=== PATIENT | male | born 1945 | race Caucasian/White ===

== ENCOUNTER 2016-09-20 14:54 | Inpatient (IN) | payer OTHER, BC ==
[~2016-09-20] VITALS: Ht 182.9 cm; Wt 60.4 kg
--- NOTE | ~2016-09-20 | HC ---
[facility] [place] [address] CONSULTATION Name: CLAUDIA ANGEL Room #: 445-P [facility] IN M.R.#: [id number] Admission: 09/20/16 Attend Phys: Peter Van MD Discharge: 09/23/16 Date of : 41 Report #: [id number] THIS REPORT FOR: //name// CC: Peter Van ATTENDING PHYSICIAN: Peter Van MD HISTORY OF PRESENT ILLNESS: This is a very pleasant 71-year-old gentleman who presents for lower extremity edema bilaterally. The patient states that this only happened for 2 or 3 days since that ____. Apparently, he had noted this profound swelling over lower extremities below the knees and to the point where now upon presentation he has erythema and cellulitic type presentation. He does not have any fever, chills or night sweats. Apparently, he was unable to take his Lasix for several days last week due to running out of his medications. He attributes that being the initial factor in his edema. He does have a history of coronary artery disease with multiple cardiac stents placed in the past. He denies any chest pain, pressure, tightness or heaviness. He has no orthopnea or PND. He is not short of breath at all and states that he has been sleeping flat in bed all this time. No syncope or near syncope is described. PAST MEDICAL HISTORY: Significant for: 1. Hypertension. 2. Coronary artery disease, status post prior myocardial infarctions and intracoronary stents. 3. COPD. 4. Sleep apnea syndrome, on CPAP. 5. History of subarachnoid hemorrhage in the past. 6. Asbestos exposure to the lungs. 7. Atrial fibrillation. 8. 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 PAST SURGICAL HISTORY: Significant for pacemaker in February of 2014, back injury in March 2013. MEDICATIONS: Oxycodone, Advair, [place]burn 3 fish oil, K-Dur, low dose aspirin, Nitrostat, Prilosec, Lasix, ProAir, Plavix, Pacerone, Lopressor and multivitamin. ALLERGIES: No known drug allergies. SOCIAL HISTORY: The patient continues to smoke, does not consume alcohol. Does not follow up with exercise regimen or dietary restriction, but has used ____ in the past. REVIEW OF SYSTEMS: Except for symptoms previously mentioned and those commensurate with comorbid state, the 10-point review of systems is negative. [address] [address] CONSULTATION Name: CLAUDIA ANGEL Room #: 445-P [facility] IN [facility]#: [id number] Admission: 09/20/16 Attend Phys: Peter Van MD Discharge: 09/23/16 Date of : 43 Report #: [id number] PHYSICAL EXAMINATION: GENERAL: Well-developed white male, resting comfortably in no acute distress. VITAL SIGNS: Noted and reviewed in the chart. HEENT: Normocephalic, atraumatic. Pupils are equal, round, reactive to light and accommodation. Extraocular muscles are intact. Sclerae and conjunctivae are anicteric. NECK: JVD is normal. Carotid upstrokes are bilaterally symmetrical. No bruits are heard. No thyromegaly. No lymphadenopathy. LUNGS: Clear to auscultation. No wheezes, rhonchi or crackles. No CVA tenderness. CARDIAC: Demonstrates a regular rhythm. Normal first and second heart sounds. No ventricular or atrial gallops, no rubs noted. No murmurs. No lifts or heaves, PMI normal. ABDOMEN: Soft, nontender, nondistended. Normal bowel sounds. EXTREMITIES: Demonstrates bilateral edema, which is at least moderate from the knees to the feet. There is demarcation of where his socks were before and above these, there is erythema noted without any broken skin, but he does have dry skin, which he states he has had for quite sometime. He has no significant hair in his lower extremities and nails are opacified and slightly thickened. NEUROLOGIC: Cranial nerves 2-12 are grossly normal and symmetrical. PSYCHIATRIC: Alert, oriented with normal affect. SKIN: Warm and dry. Electrocardiogram demonstrates a paced rhythm. LABORATORY DATA: Demonstrates a BUN and creatinine of 10 and 1.2. Estimated GFR of 59. Potassium 3.5. H and H is 13.6 and 40.9 with a platelet count of 229,000. RADIOLOGIC: Chest x-ray demonstrates chronic lung changes and no acute abnormalities. IMPRESSION: 1. Lower extremity cellulitis, will need to be on antibiotics, elevation of the legs, etc. We discussed this. Suggest wound clinic to help long-term management of his venous insufficiency, which is likely his admitting diagnosis. BNP can be elevated for numerous reasons including an elevated creatinine and infections. 2. Coronary artery disease, asymptomatic, currently on medication, continue as is. 3. Congestive heart failure: He does not have congestive heart failure. He has no fluid in his lungs, he is able to lie down flat in bed. <ELECTRONICALLY SIGNED> By: Celso Currie MD 09/24/16 1241 0014 2154 Celso Currie MD /nt
--- NOTE | ~2016-09-20 | EKG ---
[place] [address] 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 : 1945 Requested By: Bryce Hall Order Number: [id number] MD: Vitaly Whelan Measurements Intervals [place] Rate: 88 P: MN: QRS: -69 QRSD: 120 T: 111 QT: 446 QTc: 540 Interpretive Statements Afib/flut and V-paced complexes No further rhythm analysis attempted due to paced rhythm Occasional intrinsic depolarizations No previous ECG available for comparison Electronically Signed On 09-24-2016 8:07:35 CATEGORY DIRECTOR by Vitaly Whelan [email or web address] <ELECTRONICALLY SIGNED> By: Vitaly Whelan MD, [facility] 09/24/16 0807 1505 1505 Vitaly Whelan MD, [facility] /EPI
--- NOTE | ~2016-09-20 | H ---
[facility] [place] [address] HISTORY AND PHYSICAL Name: CLAUDIA ANGEL Room #: 445-P [facility] IN M.R.#: [id number] Admission: 09/20/16 Attend Phys: Peter Van MD Discharge: Date of : 43 Report #: [id number] THIS REPORT FOR: //name// CC: Peter Van DATE OF SERVICE: 09/20/2016 CHIEF COMPLAINT: Leg swelling. HISTORY OF PRESENT ILLNESS: The patient is a 71-year-old male known to me. The patient presents with increasing swelling and redness of his legs. He and his both insisted he has been doing fairly well until the last few weeks where he has had more swelling. He had not really been taking care of himself, however, as far as bathing or taking his medications regularly. He denies any significant shortness of breath or chest pain. He denies any fevers or chills. PAST MEDICAL HISTORY: Significant for asbestosis, COPD, chronic lumbar radicular pain, severe coronary artery disease, status post cardiac arrest. MEDICATIONS: Include narcotics, oxycodone and OxyContin through Dr. Damico in the pain clinic. ProAir p.r.n., Plavix 75 mg a day, Pacerone 200 mg a day, fish oil daily, metoprolol 25 mg a day, aspirin 81 mg a day, potassium 20 mEq a day, Lasix 40 mg a day but he has not been taking it, Advair 250 one puff b.i.d. and omeprazole 20 mg a day. SOCIAL HISTORY: He is a prior heavy smoker, although he says he has quit. He does not drink alcohol. No recreational drugs he reports. He lives with his independently. REVIEW OF SYSTEMS: CONSTITUTIONAL: No fever or chills. HEENT: No headaches or visual changes. CHEST: No chest pains, tightness in chest, short of breath, cough or sputum production. GASTROINTESTINAL: No nausea, vomiting, diarrhea or constipation. GENITOURINARY: No burning or frequency. EXTREMITIES: The marked swelling of the legs with redness and scaling. PHYSICAL EXAMINATION: GENERAL: He is in no acute distress. He is awake and alert. HEENT: His mucous membranes are moist. NECK: Supple without adenopathy, thyromegaly or bruits. CHEST: Clear to auscultation anteriorly. There are some scant basilar crackles bilaterally. CARDIOVASCULAR: He has an irregular rhythm with rate of 80. ABDOMEN: Soft, nondistended, nontender, no masses. Bowel sounds are active. [address] [address] HISTORY AND PHYSICAL Name: CLAUDIA ANGEL Room #: 445-P [facility] IN .R.#: [id number] Admission: 09/20/16 Attend Phys: Peter Van MD Discharge: Date of : 43 Report #: [id number] EXTREMITIES: Show 3+ edema with severe scaling of the skin and erythema above mid woods bilaterally. Pulses are present intact. There are severe onychomycoses of the nails with very unkempt nails. ASSESSMENT: 1. Cellulitis, bilateral legs. 2. Severe edema. 3. History of atrial fibrillation. 4. History of chronic back pain. PLAN: We will admit, start on IV antibiotics, IV Lasix, compression to the leg and consult wound care for the wounds and wound culture. <ELECTRONICALLY SIGNED> By: Peter Van MD 09/22/16 0705 1614 1708 Peter Van MD /nt
[~2016-09-20 14:54] MED LIST: ACETAMINOPHEN325 M1 PO; ADVAIR 100-501 EACH INH; ADVAIR 250-501 EACH INH; ALBUTEROL INH; ASA5UEC; ASPIRIN325 PO; ASPIRIN81 M2 PO; AUGMENTIN 875-1 EACH PO; BRILINTA90 MG PO; CELEXA 20 MG TA20 M1 PO; CELEXA40 MG PO; CENTRUM SILVER1 EAC1 PO; CENTRUM SILVER1 EAC2 PO; CENTRUM SILVER1 EAC4 PO; CLONAZEPAM; CLONAZEPAM 1 MG1 M1 PO; CLONAZEPAM PO; CLOPIDOGREL75 MG PO; CO Q-10100 MG PO; COLACE100 MG PO; CORDARONE200 MG PO; COREG6.25 MG PO; COUMADIN 2 MG TA2 M1 PO; DILAUDID8 MG PO; EFFIENT10 MG PO; FISH OIL 1,0001 EAC5 PO; FISH OIL 1,001000 MG PO; FISH OIL CONCE1 EAC1 PO; FUROSEMIDE 40 M40 M1 PO; GLUCOSAMINE &1 EAC1 PO; IMDUR 60 MG TAB60 M1 PO; IPRAT-ALBUT 0.5-3 ML IH; LASIX 20 MG TAB20 MG PO; LASIX 40 MG TAB40 M1 PO; LIDODERM 5%1 PATC1; LIPITOR80 MG PO; LISINOPRIL10 MG PO; LISINOPRIL20 MG PO; LISINOPRIL40 MG PO; LO-DOSE ASPIRIN81 M1 PO; LOPRESSOR; LOPRESSOR 12.12.5 MG PO; LOPRESSOR25 PO; LOW DOSE ASPIRI81 M1 PO; MEGESTROL ACETA40 MG PO; METOPROLOL SUCC25 M1 PO; MULTI VITAMIN1 EACH PO; NAPROSYN250 MG PO; NICOTINE TRANSD21 M1 TD; NITROGLYCERIN0.4 MG SUBLING; NITROSTAT0.4 MG PO; OMEGA-31000 M1 PO; OMEPRAZOLE; ONDANSETRON HCL4 M2 PO; OXYCODONE HCL 55 MG PO; OXYCODONE HCL E10 MG PO; OXYCODONE HCL10 MG PO; OXYCODONE HCL20 M1 PO; OXYCODONE HCL5 M1 PO; OXYCODONE HCL5 MG PO; OXYCODONE-ASPI1 EAC1 PO; OXYCONTIN PO; OXYCONTIN20 M1 PO; OXYCONTIN40 MG PO; OXYCONTIN80 M1 PO; OXYCONTIN80 MG PO; PACERONE200 MG PO; PERCODAN PO; PERCODAN TABLE1 EACH PO; PHENERGAN 25 MG25 M1 PO; PLAVIX 75 MG TA75 M1 PO; POTASSIUM20 PO; PREDNISONE 10 M10 M1 PO; PRILOSEC 10MG C10 M1 PO; PRILOSEC 20 MG20 MG PO; PROAIR HFA8.5 GM INH; PROTONIX 20 MG20 M1 PO; PROVENTIL HFA6.7 G1 INH; ROXICODONE15 M1 PO; SEROQUEL XR150 MG PO; SIMVASTATIN20 MG PO; TOPROL XL25 MG PO; TRAZODONE; TRAZODONE HCL50 MG PO; TYLENOL325 MG PO; ULTRAM 50MG TAB50 MG PO; UNICOMPLEX M TA1 TA1 PO; VENTOLIN HFA 1818 GM INH
[2016-09-20 14:56] VITALS: BP 120/76
[2016-09-20 15:26] LABS: ABSOLUTE NEUTROPHILS 4.7 thou/uL (1.4-8.2); EOSINOPHILS 1.3 % (0.0-3.0); HEMATOCRIT 40.9 % (42.0-52.0); HEMOGLOBIN 13.6 gm/dL (14.0-18.0); LYMPHOCYTES 29.6 % (24.0-44.0); MCH 31.7 pg (26.0-34.0); MCHC 33.3 % (28.0-37.0); MCV 95.2 fL (80.0-100.0); MONOCYTES 8.7 % (1.0-8.0); PLATELET COUNT 229 thou/uL (150-400); POLYS 59.4 % (36.0-66.0); RDW 15.8 % (10.5-14.5)
[2016-09-20 15:29] LABS: MANUAL DIFF NO
[2016-09-20 15:30] LABS: ANION GAP 9 mmol/L (7-16); BUN 10 mg/dL (7-18); CALCIUM 8.1 mg/dL (8.5-10.1); CHLORIDE 106 mmol/L (98-107); CO2 29 mmol/L (21-32); CREATININE 1.2 mg/dL (0.6-1.3); GLUCOSE 124 mg/dL (70-99); POTASSIUM 3.5 mmol/L (3.5-5.1); SODIUM 144 mmol/L (136-145)
[2016-09-20 15:43] LABS: NT-PRO BRAIN NAT PEPTIDE 10029 pg/mL (<300); TROPONIN-I < 0.04 ng/mL (<0.04-0.07)
[2016-09-20 17:15] VITALS: BP 126/80
[2016-09-20 17:25] VITALS: BP 125/84
[2016-09-20 19:26] VITALS: BP 112/75
[2016-09-20 23:42] VITALS: BP 128/81
[2016-09-21 03:40] VITALS: BP 138/77
[2016-09-21 04:30] LABS: CALCIUM 8.3 mg/dL (8.5-10.1); CREATININE 1.2 mg/dL (0.6-1.3); POTASSIUM 4.4 mmol/L (3.5-5.1)
[2016-09-21 08:00] VITALS: BP 125/79
[2016-09-21 12:00] VITALS: BP 109/68
[2016-09-21 16:00] VITALS: BP 105/66
[2016-09-21 20:14] VITALS: BP 132/78
[2016-09-22 03:20] VITALS: BP 121/89
[2016-09-22 06:30] LABS: CALCIUM 8.3 mg/dL (8.5-10.1); CREATININE 1.3 mg/dL (0.6-1.3); POTASSIUM 3.5 mmol/L (3.5-5.1)
[2016-09-22 08:00] VITALS: BP 120/68
[2016-09-22 16:00] VITALS: BP 110/72
[2016-09-22 21:44] VITALS: BP 111/61
[2016-09-23 03:45] VITALS: BP 112/67
[2016-09-23 08:00] VITALS: BP 106/59
[2016-09-23] MEDS ORDERED: CEFDINIR300 MG PO (10:12)
[2016-09-23 13:27] VITALS: BP 112/67
[2016-10-11] MEDS ORDERED: OXYCONTIN80 M1 PO ×2 (11:56→12:02)
[2016-10-11] MEDS ORDERED: OXYCODONE HCL20 M1 PO ×3 (11:56→12:14)
== END 2016-09-23 14:46 | disposition home or self-care (01) | DRG 602 ==
LOC: ER 14:54 → EROBS 16:08 → 4S 17:25
PROVIDERS: Family Medicine; Nurse Practitioner
DX: L03.115 Cellulitis of right lower limb (principal); I50.23 Acute on chronic systolic (congestive) heart failure; G47.00 Insomnia, unspecified; I48.91 Unspecified atrial fibrillation; I25.10 Atherosclerotic heart disease of native coronary artery without angina pectoris; E78.5 Hyperlipidemia, unspecified; J44.9 Chronic obstructive pulmonary disease, unspecified; G47.30 Sleep apnea, unspecified; H91.8X3 Other specified hearing loss, bilateral; H54.42 Blindness, left eye, normal vision right eye; F17.210 Nicotine dependence, cigarettes, uncomplicated; L03.116 Cellulitis of left lower limb; G89.29 Other chronic pain; M54.5 Low back pain; I11.0 Hypertensive heart disease with heart failure; I50.9 Heart failure, unspecified; J61 Pneumoconiosis due to asbestos and other mineral fibers; I25.2 Old myocardial infarction; Z95.0 Presence of cardiac pacemaker; Z79.82 Long term (current) use of aspirin; Z83.3 Family history of diabetes mellitus; Z98.890 Other specified postprocedural states; Z79.899 Other long term (current) drug therapy; Z79.02 Long term (current) use of antithrombotics/antiplatelets; Z95.5 Presence of coronary angioplasty implant and graft
CPT/HCPCS: 10100

== ENCOUNTER → 2016-10-11 | Outpatient (CLI) | payer OTHER, BC ==
[~2016-10-11] VITALS: Ht 182.9 cm; Wt 60.9 kg
[~2016-10-11] MED LIST changes: +CEFDINIR300 MG PO
--- NOTE | ~2016-10-11 | HPC ---
[facility] [place] [address] PAIN MANAGEMENT CONSULTATION Name: CLAUDIA ANGEL [id number] Admission: 10/11/16 Attend Phys: Ranjit Damico MD Discharge: Date of : 43 Report #: [id number] THIS REPORT FOR: //name// CC: Ranjit Van MD DATE OF SERVICE: 10/11/2016 FOLLOWUP COMPLAINT: Here for renewal of medication for severe chest pain and respiratory discomfort secondary to asbestosis. FOLLOWUP HISTORY: The patient is a 71-year-old gentleman who has been followed in the pain clinic for quite a number of years. He has been suffering from severe chest pain since 2005. He has been trialed on numerous opioid medications which have included methadone, Demerol, morphine, hydromorphone and found that they were not effective. The only medication that has worked successfully for him over these numbers of years has been OxyContin. He has received financial help from the [employer] patient assistance program. He still finds himself in a situation where he cannot afford his medication. The description of the pain is that in his chest area. It radiates into the anterior and lateral sides. He notes that taking deep breath can be painful. He is limited in his ability to engage in activities of daily living because of the intensity of his pain. The patient has a significant cardiac history at this juncture. He has suffered a myocardial infarct. He has 14 stents placed in his coronaries. The patient feels that his current medical regimen enables him to engage in activities he would not be able to. He is more active. When his pain becomes more problematic, he is unable to exercise and maintain his cardiovascular regimen. We have discussed the use of opioid drug medications with the patient and his . Without this medication, he notes that his functional capacity dwindles. PHYSICAL EXAMINATION: Blood pressure 91/56, pulse 90, respiratory rate 16, room air saturation 98%. The patient walks with use of his cane. He notes that he is able to continue walking to maintain his cardiac status when he is taking his medications. The patient suffers from lumbar radiculopathy. He finds that his opioid medication is helpful in that vein. He is unable to receive epidural steroid injections given he is on chronic anticoagulant therapy and given that he has [address] 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 MEDICATIONS: Cefdinir 300 mg b.i.d., metoprolol 25 mg daily, amiodarone for arrhythmia 200 mg daily, OxyContin 80 mg t.i.d., oxycodone 20 mg b.i.d., Plavix 75 mg daily, ProAir 1-2 puffs with shortness of breath, Lasix 40 mg daily, Prilosec 20 mg daily, nitroglycerin 0.4 mg p.r.n. chest pain and angina, aspirin 81 mg daily, potassium 20 mEq daily, fish oil 2000 mg daily, Advair 250/[address] [address] PAIN MANAGEMENT CONSULTATION Name: CLAUDIA ANGEL [id number] Admission: 10/11/16 Attend Phys: Ranjit Damico MD Discharge: Date of : 43 Report #: [id number] pujames b.i.d. IMPRESSION: 1. Asbestosis with chronic chest pain, treated with opioid therapy. 2. History of lumbar radicular pain helped with opioid therapy. The patient is not a candidate for surgery nor epidural steroid injections given the patient's critical cardiac history and chronic anticoagulation. 3. Severe cardiac disease with 14 stents placed. RECOMMENDATION: We reviewed the fact that opioid medications are being used to provide analgesia adequate to support activities of daily living, not attempting to achieve a specific pain score on 0-10 visual analog scale. The current opioid medications are providing sufficient analgesia to allow the patient to participate in activities of daily living. The patient is not exhibiting any aberrant behavior suggestive of drug diversion. The patient is not having any adverse reactions to his medications. The patient is not suffering from daytime somnolence or mental acuity changes. The patient is managing opioid induced constipation with appropriate mxvn-qaq-wklzmoa agents and dietary considerations. The patient was counseled on concern, cautioned with operating a motor vehicle while using opioid medications. Physical examination performed with the patient indicates that he is stable at this juncture. He does have back pain and we advised him against long periods of bed rest greater than 4 days. He should continue his cardiac rehab. Pain score assessment was noted and treatment plan was reviewed with the patient. All his current medications, both prescribed and qtny-nph-maoerol were reviewed and reconciled. I reviewed with the patient and his the responsibilities to safeguard prescription medications, reviewed the responsibility to utilize medications only as prescribed by 1 physician. They are to seek and receive pain medications only from 1 physician group ( [facility]). They are to use 1 pharmacy and keep the clinic informed if they change pharmacies. The responsibilities include making followup visits in a timely fashion and to avoid abrupt discontinuation of medication usage. The responsibilities further include bringing the medication to the visit for conformation and pill counting. The patient understands the responsibility to submit to random drug screen to ensure both that the medications prescribed are present, and no other controlled substances are present. All prescriptions were written and provided to the patient and his today. We would like to thank you for letting us participate in his care. We hope he continues to improve. <ELECTRONICALLY SIGNED> By: Ranjit Damico MD 10/29/16 1018 1256 1426 Ranjit Damico MD /nt
[2016-10-11 11:30] VITALS: BP 91/56
== END | disposition home or self-care (01) ==
LOC: PAIN 07:18
DX: J61 Pneumoconiosis due to asbestos and other mineral fibers (principal); R07.9 Chest pain, unspecified; G89.29 Other chronic pain; F17.200 Nicotine dependence, unspecified, uncomplicated; I51.9 Heart disease, unspecified; Z95.5 Presence of coronary angioplasty implant and graft

== ENCOUNTER → 2016-12-25 | Outpatient (CLI) | payer OTHER, BC ==
[~2016-12-25] VITALS: Ht 182.9 cm; Wt 64.3 kg
[~2016-12-25] MED LIST changes: +OXYCONTIN60 MG PO
--- NOTE | ~2016-12-25 | HPC ---
[facility] [address] [place] [address] PAIN MANAGEMENT CONSULTATION Name: CLAUDIA ANGEL Room #: REG [facility].#: [id number] Admission: 12/25/16 Attend Phys: Ranjit Damico MD Discharge: Date of : 43 Report #: [id number] THIS REPORT FOR: //name// CC: Ranjit Van MD DATE OF SERVICE: 12/25/2016 PRIMARY CARE PHYSICIAN: Peter Van MD FOLLOWUP COMPLAINT: Here for medication renewal and I need to get the form signed and send to the [employer]. FOLLOWUP HISTORY: The patient is a 71-year-old gentleman who has been followed in the pain clinic for quite a number of years. As you may recall, he suffers from chronic asbestosis with chronic chest pain. He also has had some problems with his heart in the last few years. He has a total of about [address] He has problems with his back and suffers from lumbar radiculopathy. He has been on chronic anticoagulation therapy. He would like to have his medications renewed. Renewal entails filling out an application and sending that to the [employer]. Hopefully, they will continue his medications at a reduced rate given his inability to pay for. PHYSICAL EXAMINATION: The patient continues to walk with a cane. He appears thin. States his appetite is not very good. He continues to have pain and discomfort in his lower back with pain radiating down into his leg. He is considering whether or not to undergo surgery. Blood pressure 114/85, pulse 80, respiratory rate 14, room air saturations 100%. The patient walks with use of his cane. ASSESSMENT: 1. Asbestosis with chronic chest pain, treated with opioid therapy - therapy is being weaned to come in compliance with the CDC recommendations. 2. History of lumbar radicular pain. The patient is trying to determine whether or not he would be a surgical candidate. 3. Severe cardiac disease - stable. RECOMMENDATION: We will decrease the patient's OxyContin use by an additional 20 mg per day. A script for OxyContin 60 mg per day, 80 mg b.i.d. have been written. He will also continue with the oxycodone medications 20 mg b.i.d. as [address] [address] PAIN MANAGEMENT CONSULTATION Name: CLAUDIA ANGEL Room #: REG [facility]#: [id number] Admission: 12/25/16 Attend Phys: Ranjit Damico MD Discharge: Date of : 43 Report #: [id number] needed. We would like to thank you for letting us participate in his care. We hope he continues to improve. By: [id number] 0344 Ranjit Damico MD /nt
[2016-12-25 11:01] VITALS: BP 115/85
== END ==
LOC: PAIN 07:50
DX: Z76.0 Encounter for issue of repeat prescription (principal); J61 Pneumoconiosis due to asbestos and other mineral fibers; M54.16 Radiculopathy, lumbar region; I51.89 Other ill-defined heart diseases; F17.213 Nicotine dependence, cigarettes, with withdrawal

== ENCOUNTER 2017-02-17 17:29 | Inpatient (IN) | payer OTHER, BC ==
[~2017-02-17] VITALS: Ht 180.3 cm; Wt 72.3 kg
--- NOTE | ~2017-02-17 | HC ---
[facility] [place] [address] CONSULTATION Name: CLAUDIA ANGEL Room #: 462-P [facility] IN M.R.#: [id number] Admission: 02/17/17 Attend Phys: Peter Van MD Discharge: Date of : 43 Report #: [id number] THIS REPORT FOR: //name// CC: Peter Van MD DATE OF SERVICE: 02/20/2017 DATE OF CONSULTATION: 02/20/2017. INTRODUCTION: The patient is a 71-year-old male who is being seen for general nail care as his feet have not been attended for approximately 1 year. He has been admitted with cellulitis, sepsis and altered mental status. Remainder of his past medical history with regard to this consultation is not remarkable. PHYSICAL EXAMINATION: His pedal exam reveals nonpalpable dorsalis pedis and posterior tibial pulses. His capillary refill time is delayed at 6 seconds. His neurologic status is grossly intact. He does experience pain with manipulation of his toenails which are severely dystrophic and long. He is apparently intact to all sensory stimulus including sharp, dull, proprioceptive vibratory sensations. His dermatologic exam reveals general desquamation of skin involving his feet, presumably associated with the resolution of chronic edema. His skin is cool, shiny and atrophic with hard induration of his feet extending to his lower extremities. His nails are extremely long and dystrophic, many of which are over 5-6 cm in length and curled on one another. They were aggressively debrided today without any underlying pathology identified such as nail bed ulcerations or infection. Remainder of the pedal exam was unremarkable. IMPRESSION: 1. Lower extremity ulcerations with cellulitis. 2. Peripheral arterial disease, likely. 3. Severe onychodystrophy with onychomycosis, bilateral feet. PLAN: This patient's general presentation is dramatic, and he is of seemingly poor hygiene. In speaking with him today, he seems mentally competent and is aware of the degree of neglect that has resulted in his current foot condition. As mentioned above, his nails were debrided. I recommended that he be seen as an outpatient for routine footcare quarterly. He was given my card, and I spoke with his to be happy to see him as an outpatient. We reviewed general foot hygiene issues. It has been a pleasure having the opportunity of caring for the [address] [place] [address] CONSULTATION Name: CLAUDIA ANGEL Room #: 462-P [facility] IN M.R.#: [id number] Admission: 02/17/17 Attend Phys: Peter Van MD Discharge: Date of : 43 Report #: [id number] patient. I will be happy to see him during this hospitalization upon further requests. By: [id number] [id number] Tucker Forbes, REGGIE /nt
--- NOTE | ~2017-02-17 | HC ---
[facility] [place] [address] CONSULTATION Name: CLAUDIA ANGEL Room #: 462-P ADM IN M.R.#: [id number] Admission: 02/17/17 Attend Phys: Peter Van MD Discharge: Date of : 43 Report #: [id number] THIS REPORT FOR: //name// CC: Peter Van DATE OF SERVICE: 02/18/2017 DATE OF CONSULTATION: 02/18/2017. PERSONAL PHYSICIAN: Peter Van MD CHIEF COMPLAINT: Left leg wound. HISTORY OF PRESENT ILLNESS: This is a 71-year-old white male who was seen supposedly last week in the clinic for cellulitis of his left lower extremity after a fall where he sustained abrasion on his left lower extremity. The patient was started on oral antibiotics; however, never had any followup. The patient then came to the emergency department and was admitted for confusion and difficulty with ambulation. The patient himself is a fairly poor historian. The patient states that he has had histories of other ulcerations in his legs in the past, which have healed. The patient when asked about any previous arterial workup on his lower extremities, he is unclear if this has ever occurred. The patient states his main concern is the pain he is having in his left leg wound. I have been asked to assist in the care of the wound at this time. The patient states that the left lower extremity abrasion occurred when he fell and was attempting to try to drive himself across the floor and he rubbed his leg on the floor itself. PAST MEDICAL HISTORY: Significant for asbestosis, congestive heart failure, chronic pain syndrome, history of tobaccoism. CURRENT MEDICATIONS: Multiple. I reviewed the patient's medication list. DRUG ALLERGIES: None. SOCIAL HISTORY: The patient continues to smoke at least 1 pack of cigarettes daily and has a history of alcohol and drug abuse in the past, but has not done any recently. FAMILY HISTORY: Not pertinent to current medical condition. REVIEW OF SYSTEMS: CONSTITUTIONAL: The patient denies fevers or chills. NEUROLOGIC: Overall generalized weakness, but no isolated weakness in arms or legs. [facility] [address] [place] [address] CONSULTATION Name: CLAUDIA ANGEL Room #: 462-P [facility] IN M.R.#: [id number] Admission: 02/17/17 Attend Phys: Peter Van MD Discharge: Date of : 43 Report #: [id number] EYES: No complaints. ENT: No complaints. CARDIAC: The patient denies chest pain, palpitations or peripheral edema. RESPIRATORY: The patient denies shortness breath, cough or wheezes. GASTROINTESTINAL: The patient denies nausea, vomiting, but does have a decreased appetite. GENITOURINARY: The patient denies urgency or frequency. MUSCULOSKELETAL: The patient has chronic back pain. PHYSICAL EXAMINATION: SKIN: There is traumatic abrasion to the left lower extremity. EXTREMITIES: Wound on the left lower extremity is with increased erythema, warmth and mild to moderate tenderness. The wound itself is approximately 70% slough, 20% necrotic tissue and 10% granulation tissue. There is a mild to moderate amount of serosanguineous drainage without significant odor. Distal pulses are faint bilaterally. Bilateral heels are intact. The patient has significant onychomycosis of all nails. NEUROLOGIC: Cranial nerves 2-12 are grossly intact. Motor and sensory grossly intact. LABORATORY VALUES: White count 11.6 and hemoglobin 12.7. WOUND CARE COURSE: At this time, the patient's main concern is pain relief from his left leg wound. We will start the patient on morphine, Silvadene cream to the area and cover this with Xeroform, ABD and Kerlix. The patient will be changing twice daily. We will check arterial Dopplers on bilateral lower extremities to evaluate the patient's underlying arterial status, of which I am concerned that this pus would be compromised given his significant history of smoking. Also, we will make sure we maximize the patient's oral supplementation of protein and supplements for healing. We will check a prealbumin. Check the patient's underlying baseline nutritional status. We will continue to follow the patient while he is here. I appreciate the ability to consult on this patient. <ELECTRONICALLY SIGNED> By: Daryl Zamora MD 02/19/17 1826 23 1240 Daryl Zamora MD /nt
--- NOTE | ~2017-02-17 | H ---
[facility] [place] [address] HISTORY AND PHYSICAL Name: CLAUDIA ANGEL Room #: 462-P [facility] IN M.R.#: [id number] Admission: 02/17/17 Attend Phys: Peter Van MD Discharge: Date of : 43 Report #: [id number] THIS REPORT FOR: //name// CC: Peter Van DATE OF SERVICE: 02/18/2017 CHIEF COMPLAINT: Altered mental status and wounds in his legs. HISTORY OF PRESENT ILLNESS: The patient is a 71-year-old male who was seen in the clinic for cellulitis last week. He was started on antibiotics and did not make his followup this following week. He has been more confused and having more difficulty ambulating. PAST MEDICAL HISTORY: Significant for asbestosis, congestive heart failure, and chronic pain. MEDICATIONS: OxyContin 60 mg b.i.d. and Oxycodone IR 20 mg b.i.d., Keflex 500 q.i.d., Advair 250/50 one puff b.i.d., fish oil daily, potassium 20 mEq a day, aspirin 81 mg a day, nitroglycerin p.r.n., Prilosec 20 mg a day, Lasix 40 mg a day, ProAir 2 puffs q. 4 p.r.n., Plavix 75 mg a day, and metoprolol 25 mg a day. ALLERGIES: No known drug allergies. SOCIAL HISTORY: He smokes cigarettes, prior alcohol and recreational drugs. REVIEW OF SYSTEMS: It is very difficult to obtain in light of his limited ability to speak. Most of this was obtained from the and ER. She is unaware of any fevers or chills. HEENT: No headaches or visual changes. CHEST: No chest pains, tightness in chest, shortness of breath, cough or sputum production. GASTROINTESTINAL: No nausea or vomiting. GENITOURINARY: No burning or frequency. EXTREMITIES: No swelling or redness. No rashes and no wounds. NEUROLOGIC: No new numbness or weakness. PHYSICAL EXAMINATION: VITAL SIGNS: Blood pressure 122/57, pulse was 74, respiratory rate 20, temperature is 36.96, and pulse oximetry 100%. GENERAL: The patient is arousable, but appears to be in moderate distress due to pain. His mucous membranes are moist. NECK: Supple. CHEST: Clear to auscultation bilaterally. CARDIOVASCULAR: Regular rhythm without murmur. ABDOMEN: Soft, no masses. Bowel sounds are active. [address] [address] HISTORY AND PHYSICAL Name: CLAUDIA ANGEL Room #: 462-P [facility] IN ..#: [id number] Admission: 02/17/17 Attend Phys: Peter Van MD Discharge: Date of : 43 Report #: [id number] EXTREMITIES: Showed extensive erythema and edema bilaterally with multiple superficial ulcers. His pulses appear intact. SKIN: As above. LABORATORY DATA: Sodium 140, potassium 3.2, chloride 100, bicarbonate 34, BUN 23, creatinine 1.5, glucose 107, lactic acid 2.6, and calcium 8.3. WBCs 11.6, hemoglobin 12.7, hematocrit 38.5, platelet count 190, segs 82, lymphs 9.5, blood culture was done. X-ray shows no osseous abnormality of the right foot. ASSESSMENT: 1. Severe sepsis. 2. Cellulitis. 3. Altered mental status. 4. Chronic pain syndrome. 5. Acute kidney injury due to the sepsis. <ELECTRONICALLY SIGNED> By: Peter Van MD 02/20/17 0714 0701 1121 Peter Van MD /nt
[2017-02-17 17:29] VITALS: BP 122/57
[2017-02-17 18:47] LABS: ABSOLUTE NEUTROPHILS 9.6 thou/uL (1.4-8.2); BASOPHILS 0.8 % (0.0-2.0); HEMATOCRIT 38.5 % (42.0-52.0); HEMOGLOBIN 12.7 gm/dL (14.0-18.0); LYMPHOCYTES 9.5 % (24.0-44.0); MCH 29.8 pg (26.0-34.0); MCV 90.3 fL (80.0-100.0); MONOCYTES 7.5 % (1.0-8.0); PLATELET COUNT 190 thou/uL (150-400); POLYS 82.2 % (36.0-66.0); RBC 4.26 mil/uL (4.50-6.00); WBC 11.6 thou/uL (4.0-11.0)
[2017-02-17 18:48] LABS: MANUAL DIFF NO
[2017-02-17 18:52] LABS: CALCIUM 8.3 mg/dL (8.5-10.1); CREATININE 1.5 mg/dL (0.7-1.3); POTASSIUM 3.2 mmol/L (3.5-5.1)
[2017-02-17] MEDS ORDERED: KEFLEX500 MG PO (19:59)
[2017-02-17 21:34] VITALS: BP 112/69
[2017-02-17 22:03] VITALS: BP 128/78
[2017-02-17 23:46] VITALS: BP 88/49
[2017-02-18 03:28] VITALS: BP 115/80
[2017-02-18 08:04] VITALS: BP 120/72
[2017-02-18 12:53] VITALS: BP 127/67
[2017-02-18 16:59] VITALS: BP 124/65
[2017-02-18 20:00] VITALS: BP 83/53
[2017-02-19 01:00] VITALS: BP 95/70
[2017-02-19 04:00] VITALS: BP 103/71
[2017-02-19 07:32] VITALS: BP 101/67
[2017-02-19 08:32] LABS: HEMATOCRIT 37.1 % (42.0-52.0); HEMOGLOBIN 12.1 gm/dL (14.0-18.0); MCH 29.6 pg (26.0-34.0); MCHC 32.5 g/dL (28.0-37.0); MCV 90.9 fL (80.0-100.0); RBC 4.08 mil/uL (4.50-6.00); RDW 17.8 % (10.5-14.5); WBC 11.7 thou/uL (4.0-11.0)
[2017-02-19 09:00] LABS: CALCIUM 7.8 mg/dL (8.5-10.1); CREATININE 1.4 mg/dL (0.7-1.3)
[2017-02-19 09:07] LABS: POTASSIUM 2.9 mmol/L (3.5-5.1)
[2017-02-19 12:19] VITALS: BP 80/46
[2017-02-19 16:21] VITALS: BP 98/52
[2017-02-19 19:52] VITALS: BP 96/58
[2017-02-20 04:20] VITALS: BP 80/57
[2017-02-20 07:50] VITALS: BP 104/69
[2017-02-20 08:40] LABS: CALCIUM 7.5 mg/dL (8.5-10.1); CREATININE 1.2 mg/dL (0.7-1.3)
[2017-02-20 08:41] LABS: POTASSIUM 3.9 mmol/L (3.5-5.1)
[2017-02-20 11:53] VITALS: BP 99/65
[2017-02-20 15:14] VITALS: BP 95/74
[2017-02-20 19:58] VITALS: BP 119/79
[2017-02-21 03:25] VITALS: BP 106/51
[2017-02-21 05:44] LABS: CALCIUM 8.4 mg/dL (8.5-10.1); CREATININE 1.3 mg/dL (0.7-1.3)
[2017-02-21 06:19] LABS: POTASSIUM 5.4 mmol/L (3.5-5.1)
[2017-02-21 07:14] VITALS: BP 110/73
[2017-02-21] MEDS ORDERED: OXYCONTIN40 MG PO (09:28)
[2017-02-21] MEDS ORDERED: OXYCODONE HCL 55 MG PO (09:28)
[2017-02-21 11:31] VITALS: BP 97/69
== END 2017-02-21 14:07 | DRG 853 ==
LOC: ER 17:29 → 4W 19:18 → EROBS 19:18 → 4W 21:35
PROVIDERS: Emergency Medicine; Family Medicine
PROC: 0JBP0ZZ Excision of Left Lower Leg Subcutaneous Tissue and Fascia, Open Approach (ICD-10-PCS; principal; 2017-02-20)
DX: A41.9 Sepsis, unspecified organism (principal); G92 Toxic encephalopathy; N17.9 Acute kidney failure, unspecified; L97.909 Non-pressure chronic ulcer of unspecified part of unspecified lower leg with unspecified severity; L03.116 Cellulitis of left lower limb; L03.115 Cellulitis of right lower limb; F17.210 Nicotine dependence, cigarettes, uncomplicated; I48.2 Chronic atrial fibrillation; G89.4 Chronic pain syndrome; S81.802A Unspecified open wound, left lower leg, initial encounter; M48.00 Spinal stenosis, site unspecified; I50.9 Heart failure, unspecified; L60.3 Nail dystrophy; B35.1 Tinea unguium; R65.20 Severe sepsis without septic shock; J61 Pneumoconiosis due to asbestos and other mineral fibers; E87.6 Hypokalemia; Z79.82 Long term (current) use of aspirin; Z79.899 Other long term (current) drug therapy; X58.XXXA Exposure to other specified factors, initial encounter; Y93.89 Activity, other specified; Y92.89 Other specified places as the place of occurrence of the external cause; Y99.8 Other external cause status; Z86.73 Personal history of transient ischemic attack (TIA), and cerebral infarction without residual deficits
CPT/HCPCS: 10045

== ENCOUNTER → 2017-03-13 | Outpatient (CLI) | payer OTHER, BC ==
[~2017-03-13] MED LIST changes: +KEFLEX500 MG PO
== END ==
LOC: HYPER 07:15
DX: S81.802A Unspecified open wound, left lower leg, initial encounter (principal); S81.801A Unspecified open wound, right lower leg, initial encounter; L97.822 Non-pressure chronic ulcer of other part of left lower leg with fat layer exposed; I73.89 Other specified peripheral vascular diseases; I10 Essential (primary) hypertension; I70.1 Atherosclerosis of renal artery; I25.10 Atherosclerotic heart disease of native coronary artery without angina pectoris; K21.9 Gastro-esophageal reflux disease without esophagitis; F17.200 Nicotine dependence, unspecified, uncomplicated; Z72.89 Other problems related to lifestyle; Z95.0 Presence of cardiac pacemaker; X58.XXXA Exposure to other specified factors, initial encounter; Y93.89 Activity, other specified; Y92.89 Other specified places as the place of occurrence of the external cause; Y99.8 Other external cause status

== ENCOUNTER → 2017-03-31 | Outpatient (CLI) | payer OTHER, BC | LOC: HYPER 06:57 | DX: S81.801D Unspecified open wound, right lower leg, subsequent encounter (principal); L97.822 Non-pressure chronic ulcer of other part of left lower leg with fat layer exposed; I73.89 Other specified peripheral vascular diseases; I10 Essential (primary) hypertension; I70.1 Atherosclerosis of renal artery; I25.10 Atherosclerotic heart disease of native coronary artery without angina pectoris; K21.9 Gastro-esophageal reflux disease without esophagitis; F17.200 Nicotine dependence, unspecified, uncomplicated; Z87.01 Personal history of pneumonia (recurrent); Z95.0 Presence of cardiac pacemaker; X58.XXXD Exposure to other specified factors, subsequent encounter ==

== ENCOUNTER → 2017-04-16 | Outpatient (CLI) | payer OTHER, BC ==
[~2017-04-16] VITALS: Ht 182.9 cm; Wt 57.6 kg
--- NOTE | ~2017-04-16 | HPC ---
[facility] [place] [address] PAIN MANAGEMENT CONSULTATION Name: CLAUDIA ANGEL Room #: REG [facility]#: [id number] Admission: 04/16/17 Attend Phys: Ranjit Damico MD Discharge: Date of : 43 Report #: [id number] THIS REPORT FOR: //name// CC: Ranjit Van DATE OF SERVICE: 04/16/2017 FOLLOWUP HISTORY: Had some cellulitis in the leg after a fall and was then a wound clinic. FOLLOWUP HISTORY: The patient is a 72-year-old gentleman who has been followed in the pain clinic. As you recall, he has a significant cardiac history. He has 14 stents. He bed. He sits up very quickly. He became somewhat lightheaded and fell. He failed to let anyone know that he had bruised his leg. It was later found that he had had some inflammation and skin breakdown in this area. He has been treated in a wound clinic environment. He was at the skilled nursing like setting. He has returned home at this juncture. He rates his pain as a 10/10 with walking. He continues to keep the area clean and bound with gauze. PHYSICAL EXAMINATION: Blood pressure 98/68, pulse 81, respiratory rate 14 and room air saturation is 100. Height 6 feet, weight 127 pounds, BMI is 17. The patient does feel weak. He has the left leg bandaged. We discussed the importance of keeping the wounds clean and the possibility of infection being quite problematic given his current condition. IMPRESSION AND PLAN: Chronic asbestosis of the chest, treated with opioid therapy. We explained to the patient and that we will continue to wean the patient to the CDC recommendations. The patient is on OxyContin, will be renew it and decreased to 60 mg p.o. t.i.d. OxyContin tablet will continue at 20 mg p.o. b.i.d. The patient has had no withdrawal signs as we have decreased his opioid dosing. He will call us if he has any problems. We explained that he should monitor his wounds. Infection would be quite problematic if the stents became infected. He and his will work to maintain sterility of his wound. They will contact their physician should they noted any changes, increased fevers or signs of infection. We would like to thank you for letting us participate in his care. We hope he continues to improve. By: 1641 [id number] Ranjit Damico MD /nt
[2017-04-16 09:04] VITALS: BP 98/68
== END | disposition home or self-care (01) ==
LOC: PAIN 07:25
DX: J61 Pneumoconiosis due to asbestos and other mineral fibers (principal); L03.116 Cellulitis of left lower limb; G89.29 Other chronic pain; I50.9 Heart failure, unspecified; F17.290 Nicotine dependence, other tobacco product, uncomplicated; F11.20 Opioid dependence, uncomplicated; Z79.82 Long term (current) use of aspirin; Z79.899 Other long term (current) drug therapy; Z98.890 Other specified postprocedural states; Z95.5 Presence of coronary angioplasty implant and graft

== ENCOUNTER → 2017-04-21 | Outpatient (CLI) | payer OTHER, BC | LOC: HYPER 07:00 | DX: L97.822 Non-pressure chronic ulcer of other part of left lower leg with fat layer exposed (principal); I73.89 Other specified peripheral vascular diseases; I10 Essential (primary) hypertension; I70.1 Atherosclerosis of renal artery; S81.801D Unspecified open wound, right lower leg, subsequent encounter; I25.10 Atherosclerotic heart disease of native coronary artery without angina pectoris; K21.9 Gastro-esophageal reflux disease without esophagitis; Z87.01 Personal history of pneumonia (recurrent); F32.9 Major depressive disorder, single episode, unspecified; F41.9 Anxiety disorder, unspecified; Z95.0 Presence of cardiac pacemaker; F17.200 Nicotine dependence, unspecified, uncomplicated; Z72.89 Other problems related to lifestyle; X58.XXXD Exposure to other specified factors, subsequent encounter ==

== ENCOUNTER → 2017-05-13 | Outpatient (CLI) | payer OTHER, BC ==
[~2017-05-13] MED LIST changes: +OXYCONTIN10 M1 PO
== END ==
LOC: HYPER 07:04
DX: L97.821 Non-pressure chronic ulcer of other part of left lower leg limited to breakdown of skin (principal); L97.811 Non-pressure chronic ulcer of other part of right lower leg limited to breakdown of skin; I73.9 Peripheral vascular disease, unspecified; I10 Essential (primary) hypertension; I70.1 Atherosclerosis of renal artery; I25.10 Atherosclerotic heart disease of native coronary artery without angina pectoris; K21.9 Gastro-esophageal reflux disease without esophagitis; F17.200 Nicotine dependence, unspecified, uncomplicated; Z95.0 Presence of cardiac pacemaker; Z72.89 Other problems related to lifestyle

== ENCOUNTER → 2017-05-14 | Outpatient (CLI) | payer OTHER, BC | END | disposition home or self-care (01) | LOC: PAIN 07:12 | DX: J61 Pneumoconiosis due to asbestos and other mineral fibers (principal); L03.116 Cellulitis of left lower limb; L03.115 Cellulitis of right lower limb; M54.16 Radiculopathy, lumbar region; Z79.899 Other long term (current) drug therapy; I51.9 Heart disease, unspecified; F17.210 Nicotine dependence, cigarettes, uncomplicated ==

== ENCOUNTER → 2017-06-13 | Outpatient (CLI) | payer OTHER, BC ==
[~2017-06-13] VITALS: Ht 182.9 cm; Wt 58.8 kg
--- NOTE | ~2017-06-13 | HPC ---
[facility] [address] [place] [address] PAIN MANAGEMENT CONSULTATION Name: CLAUDIA ANGEL Room #: REG [facility].#: [id number] Admission: 06/13/17 Attend Phys: Ranjit Damico MD Discharge: Date of : 43 Report #: [id number] THIS REPORT FOR: //name// CC: Ranjit Van MD DATE OF SERVICE: 06/13/2017 FOLLOWUP COMPLAINT: Things are going reasonably well. FOLLOWUP HISTORY: The patient is a 72-year-old gentleman who has been followed in the pain clinic because of chronic pain from asbestosis history. He has pain, which continues to be problematic in his chest. He also has had some cellulitis involving his legs. He has continued to follow up with his wound care person. He feels that there is some improvement being made in this area. He continues to have lumbar radicular pain, but is really not a candidate secondary to his current medical status or lumbar injections. He states that his cardiac status is stable at this juncture. He is not having any untoward complications. We are decreasing his opioid medications to the CDC level of about 100 morphine mEq. The patient is in a wheelchair with his . He rates his pain as a 7-8. He has not fallen since we saw him last, but has fallen in the last 3 months. PHYSICAL EXAMINATION: Blood pressure 110/76, pulse 81, respiratory rate 14, room air saturation 97%. Height 6 feet, weight 129 pounds, BMI 17.6. IMPRESSION: 1. Chronic asbestosis with chest pain, treated with opioid therapy. We are decreasing his opioid medications to the CDC recommendations. 2. Cellulitis in the legs. Legs are wrapped with some evidence of cellulitis and skin breakdown, left and right side. 3. History of lumbar radicular pain. Stable. The patient is not a candidate at this juncture for decreasing his anticoagulant medications. 4. History of severe cardiac disease, stable; has [address] RECOMMENDATIONS: We will continue with his current medical regimen of oxycodone 20 mg b.i.d. and OxyContin 60 mg t.i.d. We would like to thank you for letting us participate in his care. We hope he continues to improve. <ELECTRONICALLY SIGNED> By: Ranjit Damico MD 06/20/17 1255 1623 0417 Ranjit Damico MD /[facility]
[2017-06-13 11:00] VITALS: BP 110/76
== END | disposition home or self-care (01) ==
LOC: PAIN 06:57
DX: G89.29 Other chronic pain (principal); J61 Pneumoconiosis due to asbestos and other mineral fibers; M54.16 Radiculopathy, lumbar region; Z95.1 Presence of aortocoronary bypass graft; Z79.899 Other long term (current) drug therapy; L03.116 Cellulitis of left lower limb; L03.115 Cellulitis of right lower limb; F17.200 Nicotine dependence, unspecified, uncomplicated

== ENCOUNTER → 2017-06-19 | Outpatient (CLI) | payer OTHER, BC | LOC: HYPER 06-05 17:14 | DX: L97.822 Non-pressure chronic ulcer of other part of left lower leg with fat layer exposed (principal); L97.812 Non-pressure chronic ulcer of other part of right lower leg with fat layer exposed; I73.89 Other specified peripheral vascular diseases; L89.312 Pressure ulcer of right buttock, stage 2; I10 Essential (primary) hypertension; I70.1 Atherosclerosis of renal artery; I25.10 Atherosclerotic heart disease of native coronary artery without angina pectoris; K21.9 Gastro-esophageal reflux disease without esophagitis; Z95.0 Presence of cardiac pacemaker; F17.210 Nicotine dependence, cigarettes, uncomplicated ==

== ENCOUNTER → 2017-07-11 | Outpatient (CLI) | payer OTHER, BC ==
[~2017-07-11] VITALS: Ht 182.9 cm; Wt 62.4 kg
--- NOTE | ~2017-07-11 | HPC ---
[facility] [place] [address] PAIN MANAGEMENT CONSULTATION Name: CLAUDIA ANGEL [id number] Admission: 07/11/17 Attend Phys: Ranjit Damico MD Discharge: Date of : 43 Report #: [id number] THIS REPORT FOR: //name// CC: Ranjit Van MD DATE OF SERVICE: 07/29/2017 FOLLOWUP COMPLAINT: Still having pain. Noticed a little bit more pain since decreasing the medication. FOLLOWUP HISTORY: The patient is a 72-year-old gentleman who has been followed in the pain clinic because of chronic asbestosis. As you recall, he has significant chest pain. We have been treating this over the years with use of opioid medications. He finds that his medications continue to be helpful. Due to the new regulations with the CDC, we have explained to him and his that we must decrease his medications to come in compliance with this. He has continued to have some problems with cellulitis in his lower extremity. As you may recall, he bruised this area and continues to have pain and discomfort. He also had problems with lumbar radiculopathy in the past. He has not had injections because of his current condition. He has been anticoagulated in the past. He continues to have problems with his heart. As you recall, he has a number of stents in place. He is in a wheelchair. He is much less mobile than he had been. Overall, he rates his pain as a 7-8. Pain is more problematic when he is walking and improves sometimes when he sits down and lies down. PHYSICAL EXAMINATION: Blood pressure 110/72, pulse 79, respiratory rate 16, room air saturation 98%. Height 6 feet, weight 237 pounds, BMI 18.7. The patient continues to appear thin. He is sitting in a wheelchair. He does have some bandages on his lower extremities. There is some cellulitis noted in the lower extremities. He talks slow and still complains about pain because of decreasing his medications. IMPRESSION: 1. Chronic asbestosis with chest pain, treated with opioid therapy. We will continue to decrease his opioid medication and come in compliance with the CDC recommendations. 2. Cellulitis in his legs. His legs are wrapped with evidence of cellulitis and skin breakdown, left side and right side. 3. History of lumbar radiculopathy, stable. The patient is not a candidate for epidural steroid injections at this juncture secondary to use of anticoagulant medications. 4. History of severe cardiac disease, stable, and has approximately [address] [place] [address] PAIN MANAGEMENT CONSULTATION Name: CLAUDIA ANGEL [facility] [id number] Admission: 07/11/17 Attend Phys: Ranjit Damico MD Discharge: Date of : 43 Report #: [id number] RECOMMENDATIONS: We discussed treatment with the patient and his . At this juncture, we will continue with his regimen of oxycodone and decrease this by 25 mg per day. He will continue to take his medication as prescribed. If he has any problems, he will give us a call. He will continue to follow up with his primary care in regards to his infection in the lower extremity as well as to his cardiac status. We would like to thank you for letting us participate in his care. We hope he continues to improve. <ELECTRONICALLY SIGNED> By: Ranjit Damico MD 09/19/17 1242 0954 1137 Ranjit Damico MD /[facility]
[2017-07-11 11:52] VITALS: BP 110/72
== END ==
LOC: PAIN 07:11
DX: J61 Pneumoconiosis due to asbestos and other mineral fibers (principal); R07.89 Other chest pain; L03.116 Cellulitis of left lower limb; L03.115 Cellulitis of right lower limb; M54.16 Radiculopathy, lumbar region; F11.90 Opioid use, unspecified, uncomplicated; Z82.49 Family history of ischemic heart disease and other diseases of the circulatory system; Z95.5 Presence of coronary angioplasty implant and graft

== ENCOUNTER 2017-07-19 14:41 | Emergency (ER) | payer OTHER, BC ==
[~2017-07-19] VITALS: Ht 182.9 cm; Wt 61.2 kg
[2017-07-19 16:26] VITALS: BP 123/81
== END 2017-07-19 16:28 | disposition home or self-care (01) ==
LOC: ER 14:41
DX: S93.402A Sprain of unspecified ligament of left ankle, initial encounter (principal); I50.9 Heart failure, unspecified; F17.210 Nicotine dependence, cigarettes, uncomplicated; F10.99 Alcohol use, unspecified with unspecified alcohol-induced disorder; Z88.8 Allergy status to other drugs, medicaments and biological substances; W18.39XA Other fall on same level, initial encounter; Y93.89 Activity, other specified; Y92.89 Other specified places as the place of occurrence of the external cause; Y99.8 Other external cause status

== ENCOUNTER 2017-07-27 01:02 | Inpatient (IN) | payer OTHER, BC ==
[~2017-07-27] VITALS: Ht 182.9 cm; Wt 59.9 kg
[2017-07-27] VITALS (25 sets, daily range): BP systolic 84–116; BP diastolic 53–81
--- NOTE | ~2017-07-27 | EKG ---
[address] [employer] [place] [address] ELECTROCARDIOGRAM REPORT Name: CLAUDIA ANGEL Room #: 246-P ADM IN M.R.#: [id number] Admission: 07/27/17 Attend Phys: Peter Van MD Discharge: Date of : 43 Report #: [id number] THIS REPORT FOR: //name// [facility] ED Test Date: 2017-07-27 Test Time: 01:02:14 Pat Name: CLAUDIA ANGEL Department: Room: 246 Gender: M Operation Research Analyst: WAN : 1945 Requested By: Alvin Sorenson Order Number: [id number] MD: Vitaly Whelan Measurements Intervals Roach Rate: 80 P: WA: QRS: -29 QRSD: 152 T: 211 QT: 472 QTc: 545 Interpretive Statements Afib/flut and V-paced complexes No further analysis attempted due to paced rhythm Compared to ECG 09/20/2016 15:05:46 No significant changes Electronically Signed On 07-27-2017 14:30:26 [employer]AM [employer]SEM[employer] by Vitaly Whelan [email or web address] <ELECTRONICALLY SIGNED> By: Vitaly Whelan MD, [facility] 07/27/17 1430 1 010 Vitaly Whelan MD, [facility] /EPI
--- NOTE | ~2017-07-27 | HC ---
[facility] [place] [address] [address] CONSULTATION Name: CLAUDIA ANGEL Room #: 354-P [facility] IN M.R.#: [id number] Admission: 07/27/17 Attend Phys: Peter Van MD Discharge: 08/04/17 Date of : 43 Report #: [id number] THIS REPORT FOR: //name// CC: Peter Van DATE OF SERVICE: 07/29/2017 HISTORY OF PRESENT ILLNESS: The patient is a 72-year-old white male who was admitted through the emergency medical services with weakness x 3 days and some worsening confusion. He had pain in his coccyx and bilateral lower extremities. He does have a prior history of bilateral lower extremity cellulitis with lower extremity wounds and is followed with wound care. He also has a history of chronic pain syndrome. He was admitted with acute renal insufficiency with acute tubular necrosis, rhabdomyolysis, congestive heart failure, acute on chronic. He was also noted to have sepsis. He has been on IV antibiotics, likely source thought to be pulmonary with his asbestosis. He is being monitored regarding substance abuse withdrawal. He did have evidence of marijuana noted. We are seeing him in rehabilitation medicine consultation. PAST MEDICAL HISTORY: 1. CHF. 2. Asbestosis in the lungs. 3. He had severe sepsis with bacteremia in 01/2017. 4. History of bilateral lower leg cellulitis, seeing Dr. Benjamin. 5. History of chronic pain syndrome, seeing Dr. Damico. 6. History of pulmonary fibrosis, pacemaker. MEDICATIONS: Please see the full medication listing. HABITS: Current every day smoker. There is a history of alcohol use as well. Recreational drug use is unknown. ALLERGIES: BENZODIAZEPINE. SOCIAL HISTORY: Lives in a house with his , premorbid cane versus walker ambulator. There were two steps in. REVIEW OF SYSTEMS: Did not offer any current complaints of chest pain, shortness of breath or abdominal discomfort. He has some lower extremity pain complaints with his wounds and he does have the chronic pain syndrome. He notes some frustration regarding his overall weakness and is hard of hearing. PHYSICAL EXAMINATION: GENERAL: A 72-year-old small statured, thin, white male with a long white matute. HEENT: Facies appeared to be symmetric. [address] [address] CONSULTATION Name: CLAUDIA ANGEL Room #: 354-P [facility] IN .R.#: [id number] Admission: 07/27/17 Attend Phys: Peter Van MD Discharge: 08/04/17 Date of : 43 Report #: [id number] NEUROLOGIC: He is hard of hearing. He has a tanned leather reappearance to his skin of the face. EOMs appeared to be full. He follows basic 1 step commands without difficulty, functional range of motion of both upper extremities. Strength is grade 4-/5. DTRs are trace to 1. Lower extremities, no focal calf swelling. Functional range of motion with strength of grade 3+ to 4-/5. DTRs are trace to 1. He is max assist with sit to stand. ASSESSMENT: A 72-year-old white male with the following problem list: 1. Medical complexity with generalized debilitation. 2. Rhabdomyolysis. 3. Sepsis. 4. Acute renal insufficiency superimposed on chronic kidney disease. 5. Asbestosis. 6. Bilateral lower extremity wounds. 7. Chronic pain syndrome. 8. Substance abuse being monitored regarding withdrawal. 9. Tobacco abuse. 10. Acute renal insufficiency superimposed on chronic kidney disease. PLAN: We are assessing his tolerance for inpatient rehabilitation. He does have the above noted medical complexity issues. We will be glad to follow along with you regarding his rehab therapy needs. <ELECTRONICALLY SIGNED> By: Romie Low MD 08/06/17 1316 0944 1144 Romie Low MD /[facility]
[2017-07-27 01:00] LABS: ANION GAP 16 mmol/L (7-16); BUN 52 mg/dL (7-18); CHLORIDE 100 mmol/L (98-107); CO2 24 mmol/L (21-32); CREATININE 3.3 mg/dL (0.7-1.3); GLUCOSE 87 mg/dL (74-106); SODIUM 140 mmol/L (136-145)
[2017-07-27 01:10] LABS: MANUAL DIFF NO
[2017-07-27 01:15] LABS: ALBUMIN 2.8 g/dL (3.4-5.0); ALKALINE PHOSPHATASE 98 U/L (46-116); MAGNESIUM 1.9 mg/dL (1.8-2.4); SGOT 226 U/L (15-37); SGPT 88 U/L (30-65); TOTAL BILIRUBIN 4.5 mg/dL (<0.1-1.0); TOTAL PROTEIN 5.7 g/dL (6.4-8.2); TROPONIN-I 0.25 ng/mL (<0.06)
[2017-07-27 01:53] LABS: ABSOLUTE NEUTROPHILS 5.5 thou/uL (1.4-8.2); EOSINOPHILS 0.3 % (0.0-3.0); HEMATOCRIT 38.8 % (42.0-52.0); HEMOGLOBIN 12.7 gm/dL (14.0-18.0); LYMPHOCYTES 27.1 % (24.0-44.0); MCH 29.5 pg (26.0-34.0); MCHC 32.8 g/dL (28.0-37.0); MCV 90.1 fL (80.0-100.0); MONOCYTES 9.5 % (1.0-8.0); PLATELET COUNT 163 thou/uL (150-400); POLYS 62.1 % (36.0-66.0); RBC 4.31 mil/uL (4.50-6.00); RDW 20.2 % (10.5-14.5); WBC 8.9 thou/uL (4.0-11.0)
[2017-07-27 02:21] LABS: URINE BILIRUBIN 2+ (Negative); URINE BLOOD TRACE (Negative); URINE COLOR YELLOW; URINE GLUCOSE-RANDOM* NEGATIVE (Negative); URINE KETONES TRACE (Negative); URINE PROTEIN (DIPSTICK) 2+ (Negative); URINE SPECIFIC GRAVITY 1.025 (1.003-1.035)
[2017-07-27 02:22] LABS: URINE LEUKOCYTES-REFLEX TRACE (Negative)
[2017-07-27 02:23] LABS: ICTOTEST (BILI CONFIRMATORY) Positive (Negative)
[2017-07-27 02:26] LABS: AMP/METHAMP Negative (Negative); BARBITURATES Negative (Negative); BENZODIAZEPINES Negative (Negative); COCAINE Negative (Negative); METHADONE POSITIVE (Negative); OPIATES POSITIVE (Negative); PCP Negative (Negative); THC POSITIVE (Negative)
[2017-07-27 02:30] LABS: HYALINE CASTS >10 Many /LPF (None Seen)
[2017-07-27 02:31] LABS: SQUAMOUS 0-3 Few /LPF (0-3)
[2017-07-27 02:32] LABS: AMORPHOUS URATES Moderate /LPF (None Seen); URINE RBC 0-2 Rare /HPF (0-2); URINE WBC-REFLEX 6-15 Few /HPF (0-5)
[2017-07-27 08:51] LABS: CALCIUM 8.1 mg/dL (8.5-10.1); CREATININE 3.3 mg/dL (0.7-1.3); POTASSIUM 4.1 mmol/L (3.5-5.1)
[2017-07-28] VITALS (23 sets, daily range): BP systolic 87–122; BP diastolic 63–86
[2017-07-28 05:01] LABS: CALCIUM 7.4 mg/dL (8.5-10.1); CREATININE 2.7 mg/dL (0.7-1.3)
[2017-07-29 04:45] VITALS: BP 114/76; BP 131/79
[2017-07-29 07:35] VITALS: BP 117/84
[2017-07-29 08:06] LABS: HEMATOCRIT 42.2 % (42.0-52.0); HEMOGLOBIN 13.4 gm/dL (14.0-18.0); MCH 29.5 pg (26.0-34.0); MCHC 31.8 g/dL (28.0-37.0); MCV 92.9 fL (80.0-100.0); RBC 4.55 mil/uL (4.50-6.00); RDW 20.6 % (10.5-14.5); WBC 7.1 thou/uL (4.0-11.0)
[2017-07-29 08:15] LABS: CREATININE 2.3 mg/dL (0.7-1.3); POTASSIUM 3.5 mmol/L (3.5-5.1)
[2017-07-29 11:40] VITALS: BP 111/72
[2017-07-29 15:22] VITALS: BP 109/84
[2017-07-29 19:25] VITALS: BP 109/81
[2017-07-30 03:13] VITALS: BP 122/78
[2017-07-30 07:19] VITALS: BP 104/84
[2017-07-30 10:45] LABS: CALCIUM 8.8 mg/dL (8.5-10.1); CREATININE 2.2 mg/dL (0.7-1.3); POTASSIUM 4.3 mmol/L (3.5-5.1)
[2017-07-30 11:07] VITALS: BP 95/63
[2017-07-30 15:17] VITALS: BP 83/57
[2017-07-30 20:00] VITALS: BP 94/72
[2017-07-31 04:00] VITALS: BP 116/91
[2017-07-31 05:58] LABS: CALCIUM 9.1 mg/dL (8.5-10.1); CREATININE 2.4 mg/dL (0.7-1.3)
[2017-07-31 06:02] LABS: POTASSIUM 5.7 mmol/L (3.5-5.1)
[2017-07-31 07:03] LABS: CALCIUM 9.2 mg/dL (8.5-10.1); CREATININE 2.6 mg/dL (0.7-1.3)
[2017-07-31 07:07] LABS: POTASSIUM 4.6 mmol/L (3.5-5.1)
[2017-07-31 07:25] VITALS: BP 118/70
[2017-07-31 11:18] VITALS: BP 86/60
[2017-07-31 11:40] LABS: ALBUMIN 2.7 g/dL (3.4-5.0); DIRECT BILIRUBIN 4.9 mg/dL (<0.1-0.3); TOTAL BILIRUBIN 6.5 mg/dL (<0.1-1.0)
[2017-07-31 11:55] LABS: TOTAL PROTEIN 5.1 g/dL (6.4-8.2)
[2017-07-31 12:33] LABS: % SATURATION 33 % (20-39); IRON 75 ug/dL (65-175); TIBC 228 ug/dL (250-450); UIBC 153 ug/dL
[2017-07-31 12:41] LABS: INR 4.5; PROTIME 44.8 Seconds (9.3-11.4)
[2017-07-31 15:12] VITALS: BP 104/70
[2017-07-31 17:08] LABS: IgG 1019 mg/dL (700-1600)
[2017-07-31 19:33] VITALS: BP 100/82
[2017-07-31 23:10] LABS: HEPATITIS C VIRUS AB <0.1 (0.0-0.9)
[2017-08-01 03:54] VITALS: BP 90/61
[2017-08-01 06:15] LABS: ALBUMIN 2.3 g/dL (3.4-5.0); CALCIUM 8.7 mg/dL (8.5-10.1); CREATININE 2.8 mg/dL (0.7-1.3); DIRECT BILIRUBIN 2.7 mg/dL (<0.1-0.3); MAGNESIUM 1.8 mg/dL (1.8-2.4); PHOSPHORUS 5.1 mg/dL (2.5-4.9); POTASSIUM 5.4 mmol/L (3.5-5.1); TOTAL BILIRUBIN 4.4 mg/dL (<0.1-1.0); TOTAL PROTEIN 5.3 g/dL (6.4-8.2); TROPONIN-I 0.11 ng/mL (<0.06)
[2017-08-01 06:17] LABS: PROTIME 40.4 Seconds (9.3-11.4)
[2017-08-01 07:45] VITALS: BP 91/62
[2017-08-01 16:47] VITALS: BP 94/23
[2017-08-01 21:10] VITALS: BP 93/69
[2017-08-02 00:30] VITALS: BP 113/58
[2017-08-02 03:37] LABS: HEMOGLOBIN 13.2 gm/dL (14.0-18.0); MCH 29.8 pg (26.0-34.0)
[2017-08-02 03:38] LABS: HEMATOCRIT 40.9 % (42.0-52.0); MCHC 32.2 g/dL (28.0-37.0); MCV 92.6 fL (80.0-100.0); RBC 4.41 mil/uL (4.50-6.00); RDW 21.7 % (10.5-14.5); WBC 9.2 thou/uL (4.0-11.0)
[2017-08-02 03:47] LABS: ALBUMIN 2.2 g/dL (3.4-5.0); CALCIUM 8.5 mg/dL (8.5-10.1); CREATININE 2.8 mg/dL (0.7-1.3); POTASSIUM 4.5 mmol/L (3.5-5.1); TOTAL BILIRUBIN 4.6 mg/dL (<0.1-1.0)
[2017-08-02 03:48] LABS: INR 3.6; PROTIME 36.1 Seconds (9.3-11.4)
[2017-08-02 04:00] VITALS: BP 93/67
[2017-08-02 04:16] LABS: TOTAL PROTEIN 4.7 g/dL (6.4-8.2)
[2017-08-02 08:14] VITALS: BP 123/95
[2017-08-02 12:17] VITALS: BP 95/73
[2017-08-02 16:31] VITALS: BP 129/65
[2017-08-02 19:10] VITALS: BP 120/73
[2017-08-03 00:37] LABS: HEMOGLOBIN 13.9 gm/dL (14.0-18.0); MCH 30.2 pg (26.0-34.0); MCHC 30.9 g/dL (28.0-37.0); RBC 4.6 mil/uL (4.50-6.00); RDW 22.6 % (10.5-14.5); WBC 8.3 thou/uL (4.0-11.0)
[2017-08-03 00:45] LABS: ALBUMIN 2.5 g/dL (3.4-5.0); CALCIUM 8.6 mg/dL (8.5-10.1); CREATININE 2.8 mg/dL (0.7-1.3)
[2017-08-03 00:48] LABS: INR 3.9; PROTIME 38.7 Seconds (9.3-11.4); TOTAL PROTEIN 5.4 g/dL (6.4-8.2)
[2017-08-03 00:57] LABS: MCV 97.8 fL (80.0-100.0)
[2017-08-03 04:23] VITALS: BP 110/60
[2017-08-03 04:42] VITALS: BP 82/57
[2017-08-03 07:11] VITALS: BP 125/100
[2017-08-03 15:32] VITALS: BP 77/49
[2017-08-03 20:57] VITALS: BP 121/73
[2017-08-04 05:16] LABS: HEMOGLOBIN 12.7 gm/dL (14.0-18.0); RDW 22.3 % (10.5-14.5)
[2017-08-04 05:19] LABS: HEMATOCRIT 39.8 % (42.0-52.0); MCH 30.2 pg (26.0-34.0); MCHC 31.8 g/dL (28.0-37.0); MCV 94.9 fL (80.0-100.0); RBC 4.19 mil/uL (4.50-6.00); WBC 10.5 thou/uL (4.0-11.0)
[2017-08-04 05:28] VITALS: BP 106/49
[2017-08-04 05:44] LABS: ALBUMIN 2.3 g/dL (3.4-5.0); CALCIUM 8.4 mg/dL (8.5-10.1); CREATININE 3.2 mg/dL (0.7-1.3); POTASSIUM 5.1 mmol/L (3.5-5.1); TOTAL BILIRUBIN 9.5 mg/dL (<0.1-1.0)
[2017-08-04 08:41] VITALS: BP 112/89
[2017-08-04 11:34] VITALS: BP 84/53
== END 2017-08-04 17:16 | disposition hospice, inpatient (51) | DRG 871 ==
LOC: ER 01:02 → ICU 01:51 → 3W 01:51 → EROBS 01:51 → ICU 02:22 → 3W 07-28 18:35
PROVIDERS: Emergency Medicine; Family Medicine; Internal Medicine Gastroenterology; Nurse Practitioner; Specialist
PROC: 5A09357 Assistance with Respiratory Ventilation, Less than 24 Consecutive Hours, Continuous Positive Airway Pressure (ICD-10-PCS; principal; 2017-08-03)
DX: A41.9 Sepsis, unspecified organism (principal); N17.0 Acute kidney failure with tubular necrosis; K76.7 Hepatorenal syndrome; I50.23 Acute on chronic systolic (congestive) heart failure; M62.82 Rhabdomyolysis; D68.9 Coagulation defect, unspecified; F15.23 Other stimulant dependence with withdrawal; E44.0 Moderate protein-calorie malnutrition; L97.929 Non-pressure chronic ulcer of unspecified part of left lower leg with unspecified severity; L97.919 Non-pressure chronic ulcer of unspecified part of right lower leg with unspecified severity; L03.116 Cellulitis of left lower limb; L03.115 Cellulitis of right lower limb; I42.9 Cardiomyopathy, unspecified; Z68.1 Body mass index [BMI] 19.9 or less, adult; J61 Pneumoconiosis due to asbestos and other mineral fibers; K21.9 Gastro-esophageal reflux disease without esophagitis; F17.210 Nicotine dependence, cigarettes, uncomplicated; N18.9 Chronic kidney disease, unspecified; G89.4 Chronic pain syndrome; E16.2 Hypoglycemia, unspecified; L89.152 Pressure ulcer of sacral region, stage 2; E87.5 Hyperkalemia; I25.10 Atherosclerotic heart disease of native coronary artery without angina pectoris; J84.10 Pulmonary fibrosis, unspecified; Z51.5 Encounter for palliative care; Z90.49 Acquired absence of other specified parts of digestive tract; Z88.8 Allergy status to other drugs, medicaments and biological substances; Z79.51 Long term (current) use of inhaled steroids; Z86.73 Personal history of transient ischemic attack (TIA), and cerebral infarction without residual deficits; Z95.5 Presence of coronary angioplasty implant and graft; Z79.82 Long term (current) use of aspirin; Z79.899 Other long term (current) drug therapy; Z79.1 Long term (current) use of non-steroidal anti-inflammatories (NSAID); Z28.21 Immunization not carried out because of patient refusal
CPT/HCPCS: 10078; 10779